=== PATIENT | female | born 1970 | race Caucasian/White ===

== ENCOUNTER → 2018-05-07 09:56 | Outpatient (REF) | payer MEDICAID, SELFPAY ==
[2018-05-07 19:38] LABS: Cholesterol 219 mg/dL (50-200); HDL Cholesterol 49 mg/dL (40-60); LDL CHOLESTEROL 150 mg/dL (<100); Triglyceride 118 mg/dL (30-150)
== END ==
LOC: NCHCN 09:56
PROVIDERS: PCP Internal Medicine; Visit Provider Physician Assistant Medical
DX: Z13.220 Encounter for screening for lipoid disorders (principal); Z00.00 Encounter for general adult medical examination without abnormal findings
CPT/HCPCS: 80061; 83721

== ENCOUNTER → 2018-05-07 13:24 | Outpatient (CLI) | payer MEDICAID, SELFPAY ==
--- NOTE | 2018-05-07 11:22 | DI.REPORT_ITS ---
SYMPTOMS/DIAGNOSIS: BRONCHITIS, J40, TOBACCO DEPENDENCE, F17.200 PA AND LATERAL CHEST: Comparison 06/02/17. The heart is normal in size. The lungs are clear. The mediastinal structures and pleura appear intact. CONCLUSION: Normal chest.
== END ==
PROVIDERS: PCP Internal Medicine; Visit Provider Physician Assistant Medical
DX: J40 Bronchitis, not specified as acute or chronic (principal); F17.200 Nicotine dependence, unspecified, uncomplicated
CPT/HCPCS: 80061; 83721; 71046

== ENCOUNTER 2018-05-24 03:04 | Outpatient (CLI) | payer MEDICAID, SELFPAY ==
--- NOTE | 2018-05-24 10:00 | DI.MAMMO_ITS ---
SYMPTOMS/DIAGNOSIS: SCREENING, Z12.89 MAMMOGRAM: Mammograms were interpreted according to the usual protocol including computer analysis with CAD system, tomosynthesis and C view imaging. Comparison with prior examinations. Breast density B. No suspicious masses or microcalcifications are seen. There are scattered nodular densities in both breasts. The skin and axilla are unremarkable. IMPRESSION: No evidence for malignancy. Yearly mammography is recommended. Category 2. MQSA ASSESSMENT OF FINDINGS: Negative with benign findings. Category 2. Patient will receive a letter notifying them of these results. BI-RADS category B. There are scattered areas of fibroglandular density.
== END 2018-05-24 03:24 ==
PROVIDERS: PCP Internal Medicine; Visit Provider Physician Assistant Medical
DX: Z12.31 Encounter for screening mammogram for malignant neoplasm of breast (principal)
CPT/HCPCS: 77063; 77067

== ENCOUNTER 2018-11-19 | Outpatient (CLI) | payer MEDICAID, SELFPAY ==
--- NOTE | 2018-11-19 08:30 | ETT_ITS ---
*[facility]* *[facility]* [address] [place] [address] Stress Electrocardiography Rocky protocol Date of study: 11/19/2018 *PATIENT PRESENTATION* Height: 170.2cm (67in) Blood Pressure: Weight: 109.1kg (240lb) BSA: 2.32m^2 Referring physician: [facility] Ordering physician: [facility] Impressions: Normal study after maximal exercise. Summary: 1. Stress ECG conclusions: The stress ECG is negative. Gonzales treadmill score: 8. This score predicts a low risk of cardiac events. 2. Stress: The target heart rate was achieved. Indication: R07.89. History: REASON FOR TESTING: OVER THE LAST 3 YEARS PATIENT HAS BEEN EXPERIENCING INTERMITENT MID BACK PAIN THAT RADIATES TO HER RIGHT JAW AND NECK. THIS DISCOMFORT HAS INCREASED IN FREQUENCY TO EVERY COUPLE OF WEEKS OVER THE LAST 6 MONTHS. PATIENT DESCRIBED HER WORST EPISODE A TIGHT PRESSURE (RATED 10/10) IN MID BACK THAT RADIATES TO HER RIGHT NECK AND JAW. WHEN THIS HAPPENS HER RIGHT JAW FEELS LIKE LOCKJAW. MID BACK DISCOMFORT AND JAW PAIN HAS NO CORRELATION TO ACTIVITY OR REST. SHE DENIES PAIN/PRESSURE/TIGHTNESS UPON ARRIVAL TO TESTING TODAY. SIGNIFICANT PAST MEDICAL HISTORY: PULMONARY EMBOLISM, DVT. SMOKING STATUS: SMOKED FOR 12 YEARS, 2 PPD. EXERCISE ROUTINE: DAILY ADL'S. OCCASIONALLY WILL WALK FOR 30 MINUTES EITHER OUTSIDE OR ON TREADMILL. Risk factors: Family history of coronary artery disease. Current tobacco use. Obesity. Dyslipidemia. Cholesterol: 219mg/dl. HDL: 49mg/dl. LDL: 150mg/dl. Triglycerides: 118mg/dl. ALLERGIES: NO KNOWN ALLERGIES. MEDICATIONS: IBUPROFEN 200 MG PRN, TYLENOL 650 MG PRN. Protocol: Rocky protocol. Baseline ECG: SINUS RHYTHM. 66 BPM. Stress protocol: + +---+ + !Stage !HR !BP (mmHg) ! + +---+ + !Baseline supine !66 !120/80 (93) ! + +---+ + !Baseline standing !81 !100/80 (87) ! + +---+ + !Stage I; 1.7mph, 10degrees; 3 min !115!120/80 (93) ! + +---+ + !Stage II; 2.5mph, 12degrees; 3 min !126!140/80 (100)! + +---+ + !Stage III; 3.4mph, 14degrees; 3 min!---!150/80 (103)! + +---+ + !Peak stress !160! ! + +---+ + !Recovery; 1 min !140!140/72 (95) ! + +---+ + !Recovery; 3 min !89 !138/78 (98) ! + +---+ + !Recovery; 6 min !87 !120/80 (93) ! + +---+ + * Stress results: STRESS TEST ENDED IN 7 MINUTES & 46 SECONSDS DUE TO SHORTNESS OF BREATH AND FATIGUE. NORMAL HEART RATE AND BLOOD PRESSURE RESPONSE TO EXERCISE. MAX HEART RATE = 160 % OF TARGET HEART RATE ACHIEVED = 93 APPROXIMATE MET'S ACHIEVED = 9.78 NO ECTOPY. NO ANGINA. NO SIGNIFICANT ST SEGMENT CHANGES. AVERAGE FUNCTIONAL CAPACITY FOR EXERCISE. Maximal heart rate during stress was 160bpm (94% of maximal predicted heart rate). The maximal predicted heart rate was 171bpm. The target heart rate was achieved. The rate-pressure product for the peak heart rate and blood pressure was 55372ko Hg/min. Stress ECG: The stress ECG is negative. Gonzales treadmill score: 8. This score predicts a low risk of cardiac events. Study data: Chiki Massey MD supervised and was readily available during the procedure. This study was interpreted by [facility]. Study status: Routine. Consent: The risks, benefits, and alternatives to the procedure were explained to the patient and informed consent was obtained. Procedure: Initial setup. A baseline ECG was recorded. Surface ECG leads and manual cuff blood pressure measurements were monitored. Heart sounds: Normal. Lung sounds: Normal. Treadmill exercise testing was performed using the Rocky protocol. Study completion: The patient tolerated the procedure well and was discharged from the lab. Discharge: The patient left the laboratory in stable condition. Birthdate: Patient birthdate: 1970. Sex: Gender: female. Study date: Study date: 11/19/2018. Study time: 00:01 AM. Electronically signed by Chiki Massey MD 11/19/2018 10:03
== END 2018-11-19 00:20 ==
PROVIDERS: PCP Internal Medicine; Visit Provider Surgery
DX: R07.89 Other chest pain (principal); E78.5 Hyperlipidemia, unspecified; Z86.718 Personal history of other venous thrombosis and embolism; Z86.711 Personal history of pulmonary embolism; Z87.891 Personal history of nicotine dependence; Z82.49 Family history of ischemic heart disease and other diseases of the circulatory system
CPT/HCPCS: 93017

== ENCOUNTER 2019-04-30 10:01 | Outpatient (REF) | payer MEDICAID, SELFPAY ==
[2019-04-30 18:47] LABS: HCT 44.8 % (36.0-46.0); HGB 14.7 g/dL (12.0-15.5); Mean Corp. HGB Concentration 32.8 g/dL (32.0-36.0); Mean Corpuscular Hemoglobin 30.9 pg (27.0-33.0); Mean Corpuscular Volume 94.3 fL (80-95); Mean Platelet Volume 10.4 fL (8.0-11.0); Platelet Count 304 x1000/uL (130-400); RBC 4.75 m/cumm (4.00-5.20); RBC Distribution Width 13.4 % (11.7-14.6); White Blood Cell Count 5.08 k/cumm (4.4-10.8)
[2019-04-30 18:48] LABS: Bilirubin Negative (Negative); Blood Small (Negative); Clarity Clear (Clear); Glucose Negative (Negative); Ketones Negative (Negative); Leukocyte Esterase Negative (Negative); Nitrite Negative (Negative); Urobilinogen 0.2 EU/dL (Up TO 0.2)
[2019-04-30 18:56] LABS: Anion Gap 9.5 mmol/L (3-11); BUN 12 mg/dL (7-18); CO2 27.5 mmol/L (21.0-32.0); CREATININE 0.86 mg/dL (0.55-1.02); Calcium 8.8 mg/dL (8.5-10.1); Chloride 105 mmol/L (98-107); Glucose 105 mg/dL (70-100); Potassium 4.7 mmol/L (3.5-5.1); Sodium 142 mmol/L (136-145)
[2019-04-30 18:58] LABS: WBC Negative HPF (0-5)
[2019-04-30 18:59] LABS: Bacteria Negative HPF (Negative); C & S Indicated? No; Casts Negative LPF (Negative); Crystals Negative HPF (Negative); Epithelial Cells Moderate HPF (Negative); Mucus Negative (Negative)
== END 2019-04-30 10:21 ==
LOC: NCHCN 10:01
PROVIDERS: PCP Internal Medicine; Visit Provider Nurse Practitioner Family
DX: R10.32 Left lower quadrant pain (principal)
CPT/HCPCS: 80048; 85027; 81003; 81015

== ENCOUNTER 2019-06-03 00:28 | Outpatient (CLI) | payer MEDICAID, SELFPAY ==
--- NOTE | 2019-06-03 08:30 | DI.CT_ITS ---
EXAM: CT ABDOMEN PELVIS W CLINICAL HISTORY: LLQ ABD PAIN,R10.32. TECHNIQUE: CT examination of the abdomen and pelvis was carried out according to the usual protocol with an intravenous injection of 100 cc Omnipaque and oral ingestion of dilute Omnipaque. COMPARISON: ABD PELVIS WITH CONTRAST from 09/01/2017 FINDINGS: The examination is compared with a prior study from 09/01/2017. The liver and gallbladder are intact . There are no stones or evidence of ductal dilatation. The pancreas, spleen and kidneys are intact s ave for a small lower pole right renal calculus. Adrenals are unremarkable. There is no evidence of bowel obstruction. The patient is status post previous sigmoid resection and small bowel resections. There is no evidence of mucosal thickening. There is nothing to suggest an acute appendix. Bladder appears intact. The reproductive organs as visualized appear intact. There is no evidence of free a ir or free fluid in the intraperitoneal space. No acute bony abnormality is seen The soft tissues are unremarkable. There is no aortic aneurysm. There is no lymphadenopathy. When compared with the pre vious study, again noted are multiple cystic structures in the pelvis which appear little changed in size when compared with the previous examination. Small ring-like regions of enhancement involving b oth right and left cyst. On today's examination, the dominant right pelvic cyst measures 9.4 by 3.6 c m. The dominant left cyst measures up to 13 by 6 cm. There is no evidence of an aneurysm. IMPRESSION: When compared with the prior examination, again noted are multiple cystic pelvic masses. These are n ot significantly increased in size when compared with the prior study. If there is any further clinic al question regarding the status of this patient, then an MRI is suggested for further evaluation.
[2019-06-03] MEDS: Omnipaque 350 MG/ML 100 ML BTL IJ (09:01)
[2019-06-03] MEDS: Breeza Beverage 473 ML BTL PO ×2 (09:01→09:02)
[2019-06-03] MEDS: Omnipaque 350 MG/ML 50 ML BTL PO (09:01)
== END 2019-06-03 00:48 ==
PROVIDERS: PCP Internal Medicine; Visit Provider Nurse Practitioner Family
DX: R10.32 Left lower quadrant pain (principal); R93.5 Abnormal findings on diagnostic imaging of other abdominal regions, including retroperitoneum; R19.07 Generalized intra-abdominal and pelvic swelling, mass and lump
CPT/HCPCS: 74177; J3490; Q9967

== ENCOUNTER 2019-07-02 01:21 | Outpatient (CLI) | payer MEDICAID, SELFPAY ==
[2019-07-02] MEDS: Normal Saline Flush 10 ML SYR IVP (15:03)
[2019-07-02] MEDS: Gadoterate meglumine 20 ML VIAL IVP (15:04)
--- NOTE | 2019-07-02 15:23 | DI.MRI_ITS ---
EXAM: MR PELVIS WO/W CLINICAL HISTORY: PELVIC CYSTS ON CT SCAN, PAIN, EXTENSIVE ABD SURGICAL HISTORY. TECHNIQUE: Multiplanar multisequence MRI was performed. COMPARISON: CT OF ABDOMEN AND PELVIS 06/03/19 FINDINGS: There is no free fluid in the intraperitoneal space. A large adnexal cystic lesion measures up to 11 .3 x 5.9 x 9.9 cm on the right and 8.5 x 5.3 x 8.5 on the left. There is no definite enhancement. T here are other bilateral ovarian follicle cysts, measuring up to 1.6 cm. There is a 1.4 cm follicular cyst in the right ovary with increased T2 weighted signal consistent with a follicular cyst containi ng hemorrhagic or proteinaceous material. 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 The soft tissues are unremarkable. IMPRESSION: Large adnexal cystic lesions are demonstrated, measuring up to 11.3 x 5.9 x 9.9 cm on the right and 8 .5 x 5.3 x 8.5 cm on the left. There is no definite enhancement. Similar to a prior CT, the differe ntial diagnosis includes paraovarian cyst, cystadenoma. A cystadenocarcinoma could not be entirely ex cluded.
--- NOTE | 2019-07-03 07:09 | DI.VRAD_ITS ---
PROCEDURE INFORMATION: Exam: MR Pelvis Without and With Contrast Exam date and time: 07/02/2019 3:23 PM Clinical history: 49 years old, female; Other: Pelvic cysts on CT scan, pain, extensive abd surgical history; Prior surgery TECHNIQUE: Imaging protocol: Magnetic resonance images of the pelvis without and with intravenous contrast. Contrast material: DOTAREM; Contrast volume: 20 ml; Contrast route: IV; COMPARISON: CT ABDOMEN PELVIS W 06/03/2019 8:43 AM FINDINGS: Intraperitoneal space: No free fluid. Reproductive: Large adnexal cystic lesions measuring up to 11.3 x 5.9 x 9.9 cm on the right and 8.5 x 5.3 x 8.5 cm on the left. No definite enhancement. 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 IMPRESSION: Large adnexal cystic lesions measuring up to 11.3 x 5.9 x 9.9 cm on the right and 8.5 x 5.3 x 8.5 cm on the left. No definite enhancement. Similar to prior CT. Differential diagnosis includes a paraovarian cyst cystadenoma. Cystadenocarcinoma less likely but not excluded Dictated and Authenticated by: Arthur Silva MD. Ordering:BLU Ross MD
== END 2019-07-02 01:41 ==
PROVIDERS: PCP Internal Medicine; Visit Provider Nurse Practitioner Family
DX: N83.8 Other noninflammatory disorders of ovary, fallopian tube and broad ligament (principal); N83.01 Follicular cyst of right ovary; N94.89 Other specified conditions associated with female genital organs and menstrual cycle
CPT/HCPCS: 72197

== ENCOUNTER 2020-02-01 15:57 | Emergency (ER) | payer MEDICAID, SELFPAY ==
[2020-02-01 16:06] VITALS: BP 132/76; PULSE 89; RESP 18; TEMP 36.6; O2SAT 99
--- NOTE | 2020-02-01 16:15 | DI.CT_ITS ---
EXAM: CT ABDOMEN PELVIS W CLINICAL HISTORY: abdominal pain. TECHNIQUE: Imaging Protocol: Axial computed tomography images with coronal and sagittal reformatted images were created and reviewed CONTRAST MATERIAL: Intravenous: Omnipaque 350 Contrast volume:100 cc Oral: yes COMPARISON: CT ABD PELVIS WITH CONTRAST from 04/19/2011 US from 07/08/2015 CT ABD PELVIS WITH CONTRAST from 07/21/2015 CT ABD PELVIS WITH CONTRAST from 09/01/[address] ABDOMEN PELVIS W from 06/03/2019 MR MR PELVIS WO/W from 07/02/2019 FINDINGS: ABDOMEN: Lung Bases: Normal where visualized. Liver: Normal density. No measurable mass. Gallbladder and biliary tract: No radiodense calculus or dilation. Pancreas: Normal density, no abnormal calcifications or inflammatory process. Spleen: Normal. Kidneys: Normal size, contour and axis. No radiodense stones or obstructive uropathy. No masses seen. Adrenal glands: No masses seen. Abdominal Aorta: Abdominal portion non-dilated. PELVIS: Bladder: Symmetric distention, no gross wall thickening. Bowel: There is a question of mild wall bowel wall thickening in the anterior midline of the abdomen. Fluid is seen in the colon more so on the right. There is no evidence of obstruction. Patient is status post appendectomy.. Peritoneal cavity: No ascites, collection or mesenteric inflammatory response. Bones: Within normal limits. Nerve root sheath cysts are again noted in the upper sacrum. Reproductive organs: Status post hysterectomy. There is a an area of soft tissue which could represe nt residual cervix. There are bilateral septated ovarian cysts, the right with considerable decrease when compared to the previous exam. The left ovarian cyst has increased in size, measuring 11 cm. There is impression on the left side of the bladder. Lymph nodes: Unremarkable. There has been previous abdominal wall surgery. There is a stable dehiscence of the midline of the a nterior abdominal wall. Impression: Question of mild wall thickening of a loop of small bowel in the mid abdomen anteriorly. No evidence of obstruction. Please previous ventral abdominal wall surgery. Bilateral adnexal cystic masses. The left has increased in size while the right has decreased in siz e since the previous examination. RADIATION DOSE DELIVERED: 1,367.78mGy.cm Total DLP DATA REPOSITORY: All CT scans at this facility are submitted to the National Radiology Data Registry (NRDR) Dose Index Registry (DIR) with the [employer] (ACR). RADIATION OPTIMIZATION: All CT scans at this facility use at least one of these dose optimization te chniques: automated exposure control; mA and/or kV adjustment per patient size (includes targeted exa ms where dose is matched to clinical indication); or iterative reconstruction.
--- NOTE | 2020-02-01 16:21 | W.ED.GENAD ---
Discharge Plan Discharge Details Chief Complaint: Abd Prob Primary Care Provider: Linus Barton ED Provider: Kaci Roth Home Meds and New Rx's Prescriptions: No Action acetaminophen [Tylenol] 325 MG tablet 650 mg PO Q6H PRN PRNRF: 0 ibuprofen [Advil] 200 MG tablet 200 mg PO Q6H PRN PRNRF: 0 Discharge Data Discharge Date/Time-TO BE ENTERED AT DEPARTURE: 02/01/20 21:20 Medical Decision Making <DELIO Booth - Last Filed: 02/01/20 22:27> 49-year-old patient presents with onset of abdominal pain beginning at 8:00 this morning which began at a 2 out of 10 has not escalated to a 6 out of 10 over the course the day. Patient does report some cramping components which are sharper than 6 out of 10. Patient does report a longstanding surgical history. Please see HPI for details. She presents with normal vital signs, afebrile. On exam has lower abdominal pain and left lower quadrant abdominal pain with palpation otherwise no peritoneal signs. Will provide pain medication, nausea medication, IV fluid after obtain IV access. We will plan to check labs as well as CT of patient's abdomen. Patient is agreeable to this plan of care. No Covid concerns. Reevaluation patient reveals she is feeling significantly more comfortable after use of pain medication. Patient's labs reveal no leukocytosis. No significant electrolyte abnormalities. Renal function normal, liver function normal. Lipase normal. Urinalysis unremarkable for identified infection. Patient did receive 500 cc of NS IV. Patient's CT reveals possible enteritis involving the small bowel loops in the ventral abdomen. Nonobstructing calculus of the right kidney. No hydronephrosis. No evidence of bowel obstruction. Patient has diverticulosis without evidence of diverticulitis. Patient does have bilateral adnexal cystic masses. Mass on the left measures 11.3 x 7.6 cm with interval enlargement in the right-sided mass measures 6.7 x 2.7 cm with interval decrease in size compared to previous imaging on 06/03/2019. Patient is status post appendectomy. Reexamination of the patient reveals improved pain the exception of persistent pain in the right lower abdomen. Discussed adnexal masses with the patient. Patient unaware of adnexal masses. Given her pain in the right lower abdomen and finding of cystic mass concern for possible ovarian torsion. Although given patient's presentation today described as periumbilical pain upper abdominal pain which spread to the abdomen I find this to be unlikely however patient clearly is tender in the lower abdomen at this time. I did page to [facility] to discuss patient's case. Spoke with Dr. Markham regarding concerns regarding ovarian mass. We discussed the possibility of admission for overnight observation versus transfer to [facility] for surgical consideration. Plan to discuss options with the patient. Spoke with the patient regarding these options. Patient feels strongly that this is unlikely to be related to her ovaries however does understand that her persistent pain is in the area of her ovary. She felt this was likely bowel related. Patient did speak with Dr. Markham who did present to the emergency room for evaluation. Ultimately patient's preference is to follow-up with [facility] a surgeon whom she is familiar with. Patient is also connected to the [facility] services and would prefer follow-up at that time. Patient ultimately signed out AGAINST MEDICAL ADVICE and preference to follow-up with her own specialists. <Palomo Duncan MD - Last Filed: 02/01/20 17:37> Patient seen, examined and discussed with Ms. Mathias. I agree with her assessment and plans for work-up including laboratory and CT images. Please see her note regarding patient's diagnostic studies. HPI <DELIO Booth - Last Filed: 02/01/20 22:27> General Date/Time Provider Initiated Documentation: 02/01/20 16:02. HPI Narrative: This is a 49-year-old patient presenting to the emergency room today for complaints of abdominal pain. Patient reports she awoke feeling well. Patient reports she had a normal bowel movement this morning. Reports at approximately 8:00 AM while she was standing doing dishes she noted onset of 2 out of 10 mid abdominal pain. Patient reports throughout the course the day pain has increased in severity. Patient now reporting a constant 6 out of 10 pain with occasional cramping pain which is sharper. Patient reports cramping pain coming in waves. Patient denies associated headache or dizziness. Does report mild chills this morning no measured fever or sweats. Denies diaphoresis. Patient denies any chest pain, difficulty breathing or shortness of breath or wheezing. No new cough. Denies any ill exposure. Patient does report mild lower back pain associated with abdominal discomfort. Patient denies any diarrhea. No nausea no vomiting. Denies any dysuria, urgency, frequency or hematuria. Patient denies any numbness, tingling or weakness of extremities. Denies any sore throat, voice change. Denies any lower extremity swelling. Patient denies diarrhea. No blood with bowel movements. Patient has a medical history pertinent for hysterectomy, bowel resection due to diverticulitis. Colostomy with reversal. Appendectomy. Patient reports most recent surgery was a hernia repair in 2016. Patient's colostomy and bowel resection were in 2014. Patient denies taking any daily medications. Patient denies taking medications prior to arrival. Related Data Home Medications Medication Instructions Recorded Confirmed acetaminophen [Tylenol] 650 mg PO Q6H PRN PRN tab 10/27/17 02/01/20 ibuprofen [Advil] 200 mg PO Q6H PRN PRN tab 10/27/17 02/01/20 Previous Rx's Medication Instructions Recorded acetaminophen [Tylenol] 650 mg PO Q6H PRN PRN tab 10/27/17 ibuprofen [Advil] 200 mg PO Q6H PRN PRN tab 10/27/17 Allergies Allergy/AdvReac Type Severity Reaction Status Date / Time No Known Allergies Allergy Unverified 02/01/20 16:08 General Stated Complaint: Abd Prob NEIL: 3 Review of Systems <DELIO Booth - Last Filed: 02/01/20 22:27> All systems reviewed & are unremarkable except as noted in HPI and below PFS <DELIO Booth - Last Filed: 02/01/20 22:27> Surgical History (Updated 11/07/17 @ 13:36 by Lacey Landaverde) Hernia Repair, Incisional (10/24/17) Social History Smoking/Tobacco Use Status: Current every day Tobacco Type: cigarettes Alcohol Intake: current Alcohol Intake frequency: holidays/special occasions only Drug use: Never Substance use type: does not use Do you feel safe at home: Yes Do you feel safe in your relationship?: Yes Exam <DELIO Booth - Last Filed: 02/01/20 22:27> Narrative Exam Narrative: CONST: Uncomfortable appearing patient. Well hydrated. Alert and oriented. EYES: General normal appearance. Alignment normal. Eyelids normal. Conjunctiva normal. Sclera normal. PERRL. NECK: Normal visual inspection. FROM. No lymphadenopathy. Trachea midline. No Midline tenderness. CHEST: Normal insepection of the chest. RESP: Normal respiratory effort. Speaking full sentences. No cough. No wheezing. No retractions. Clear to auscaltation. Breath sound equal and present bilaterally. CARDIO: No JVD. Normal PMI. Regular Rate. Regular Rhythm. Normal peripheral pulses. GI: Normal inspection of abdomen. No distension. Soft. Abdominal tenderness noted in the left lower quadrant, periumbilical area, suprapubic area. Bowel sounds present in all 4 quadrants. No rebound. No gaurding. MUSCULOSKELETAL: Normal Gait. FROM of all extremities. Distal neurovascularly intact. Sensation intact distally. Back: No CVA tenderness noted bilaterally SKIN: Normal. Dry. No rashes. NEURO: Alert and awake. Speech clear. PSYCH: Normal affect. Cooperative. Course <DELIO Booth - Last Filed: 02/01/20 22:27> Vital Signs Vital signs: Vital Signs Temperature 36.6 C 02/01/20 16:06 Pulse 89 02/01/20 16:06 Respiratory Rate 18 02/01/20 16:06 Blood Pressure 132/76 02/01/20 16:06 Pulse Oximetry 99 02/01/20 16:06 Temperature 36.6 C 02/01/20 16:06 Temperature Source Skin 02/01/20 16:06 Pulse 89 02/01/20 16:06 Respiratory Rate 18 02/01/20 16:06 Blood Pressure 132/76 02/01/20 16:06 Blood Pressure Position Sitting 02/01/20 16:06 Pulse Oximetry 99 02/01/20 16:06 Oxygen Delivery Method Room Air 02/01/20 16:06 Oxygen Flow Rate 0 02/01/20 16:06 Pain Level 6 02/01/20 16:06
[2020-02-01] MEDS: Ondansetron 4 MG/2 ML VIAL IVP (16:44)
[2020-02-01] MEDS: Normal Saline Flush 10 ML SYR IVP (16:45)
[2020-02-01 17:15] LABS: Abs Immature Grans 0.02 k/cumm (0.0-0.09); Absolute Basophil Count 0.02 k/cumm (0.0-0.2); Absolute Eosinophil Count 0.08 k/cumm (0.0-0.7); Absolute Lymphocyte Count 1.36 k/cumm (1.2-3.4); Absolute Monocyte Count 0.74 k/cumm (0.11-0.7); Absolute Neutrophil Count 6.54 k/cumm (1.2-6.7); Basophils % 0.2; Eosinophils % 0.9; HCT 42.9 % (36.0-46.0); HGB 14.6 g/dL (12.0-15.5); Immature Grans % 0.2 %; Lymphocytes % 15.5; Mean Corpuscular Hemoglobin 31.5 pg (27.0-33.0); Mean Corpuscular Volume 92.7 fL (80-95); Mean Platelet Volume 10.1 fL (8.0-11.0); Monocytes % 8.4; Neutrophils % 74.8; Platelet Count 357 x1000/uL (130-400); RBC 4.63 m/cumm (4.00-5.20); RBC Distribution Width 13.5 % (11.7-14.6); White Blood Cell Count 8.76 k/cumm (4.4-10.8)
[2020-02-01] MEDS: Normal Saline 500 ML IV (17:40)
[2020-02-01 17:46] LABS: Bilirubin Negative (Negative); Blood Trace-intact (Negative); Clarity Clear (Clear); Glucose Negative (Negative); Ketones Negative (Negative); Leukocyte Esterase Negative (Negative); Nitrite Negative (Negative); Urobilinogen 0.2 EU/dL (Up TO 0.2); pH 8.5 (5-8)
[2020-02-01 17:47] LABS: C & S Indicated? C&S Done As Ordered
[2020-02-01 17:54] LABS: RBC 20-50 HPF (0-2); WBC Negative HPF (0-5)
[2020-02-01 17:55] LABS: Casts Negative LPF (Negative); Crystals Few Amorphous HPF (Negative); Epithelial Cells Negative HPF (Negative); Mucus Moderate (Negative)
[2020-02-01 18:01] LABS: ALT 29 U/L (14-59); AST 23 U/L (15-37); Albumin 4.1 g/dL (3.4-5.0); Alkaline Phosphatase 73 U/L (46-116); Anion Gap 6.3 mmol/L (3-11); BUN 15 mg/dL (7-18); Bilirubin, Total 0.4 mg/dL (0.2-1.0); CO2 29.7 mmol/L (21.0-32.0); CREATININE 0.99 mg/dL (0.55-1.02); Calcium 9.5 mg/dL (8.5-10.1); Chloride 103 mmol/L (98-107); Estimated GFR 59.37 (mL/min/1.73m2); Glucose 109 mg/dL (74-106); Lipase 111 U/L (73-393); Potassium 3.7 mmol/L (3.5-5.1); Sodium 139 mmol/L (136-145); Total Protein 7.8 g/dL (6.4-8.2)
[2020-02-01 18:02] VITALS: BP 123/76; PULSE 70; RESP 20; TEMP 37.1; O2SAT 95
[2020-02-01 18:05] LABS: Bacteria Negative HPF (Negative)
[2020-02-01 19:22] VITALS: BP 126/81; PULSE 74; RESP 18; TEMP 37.2; O2SAT 95
[2020-02-01] MEDS: Normal Saline 1,000 ML 125 ML IV (19:31)
--- NOTE | 2020-02-01 19:44 | DI.VRAD_ITS ---
PROCEDURE INFORMATION: Exam: CT Abdomen And Pelvis With Contrast Exam date and time: 02/01/2020 4:20 PM Age: 49 years old Clinical indication: Abdominal pain TECHNIQUE: Imaging protocol: Computed tomography of the abdomen and pelvis with intravenous contrast. COMPARISON: CT ABDOMEN PELVIS W 06/03/2019 8:43 AM FINDINGS: Liver: Normal. No mass. Gallbladder and bile ducts: Normal. No calcified stones. No ductal dilation. Pancreas: Normal. No ductal dilation. Spleen: Normal. No splenomegaly. Adrenals: Normal. No mass. Kidneys and ureters: Nonobstructing calculus in the right kidney. No hydronephrosis. Stomach and bowel: Status post ventral hernia repair and bowel resection. There is mucosal thickening of a small bowel loop in the ventral abdomen. No evidence of bowel obstruction. Colonic diverticulosis without diverticulitis. Appendix: Appendectomy. Intraperitoneal space: Trace fluid in the ventral abdomen which may be extraperitoneal. No free air. Vasculature: Unremarkable. No abdominal aortic aneurysm. Lymph nodes: Unremarkable. No enlarged lymph nodes. Bladder: Unremarkable as visualized. Reproductive: Bilateral adnexal cystic masses. The mass on the left measures 11.3 x 7.6 cm with interval enlargement and the right-sided mass measures approximately 6.7 x 2.7 cm with interval decrease. 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 No acute fracture. Soft tissues: Unremarkable. IMPRESSION: 1. Possible enteritis involving a small bowel loop in the ventral abdomen. 2. Bilateral cystic adnexal masses as above. Dictated and Authenticated by: Ventura Mora MD. Ordering:JOAN Clemons MD
[2020-02-01 21:09] VITALS: BP 149/100; PULSE 97; RESP 16; TEMP 36.7; O2SAT 96
--- NOTE | 2020-02-01 21:12 | NUR.NOTE ---
Pt out to desk, states she wants to leave. Pt had pulled own IV from RFA, dsd in place. Informed pt she was waiting for MD Markham for eval. Pt stated she did not want to wait. MD Markham arrived and spoke with pt, pt states again she wants to leave. Aware leaving AMA. Encouraged to return for worsening symptoims. Ambulated to exit with steady
== END 2020-02-01 21:20 ==
LOC: ER 17:52
PROVIDERS: Emergency Provider Physician Assistant; PCP Internal Medicine
DX: R10.32 Left lower quadrant pain; R93.5 Abnormal findings on diagnostic imaging of other abdominal regions, including retroperitoneum; Z53.29 Procedure and treatment not carried out because of patient's decision for other reasons
CPT/HCPCS: 36415; 80053; 83690; 96361; 96374; 96375; 99285; 74177; 81003; 81015; 85025; 87086; J2405

== ENCOUNTER 2020-11-02 17:00 | Emergency (ER) | payer MEDICAID, SELFPAY ==
--- NOTE | 2020-11-02 17:00 | RT.EKG_ITS ---
APPROVED REPORT Exam: Resting ECG Patient Location: E HR:89 bpm ECG Measurements Heart Rate 89 AXIS HI 157 P 32 QRSd 90 QRS -12 QT 362 T 65 QTc 442 Conclusion Sinus rhythm...normal P axis, V-rate 60- 99 I have reviewed and interpreted ECG and agree with software generated interpretation. Physician: no stemi
[2020-11-02 17:04] VITALS: BP 139/103; PULSE 104; RESP 18; TEMP 36.5; O2SAT 99
--- NOTE | 2020-11-02 17:15 | DI.CT_ITS ---
EXAM: CT ABDOMEN PELVIS WO CLINICAL HISTORY: generalized lower abdominal pain. TECHNIQUE: Imaging Protocol: Axial computed tomography images with coronal and sagittal reformatted images were created and reviewed. Oral: no COMPARISON: CT CT ABDOMEN PELVIS W from 02/01/2020 FINDINGS: ABDOMEN: Lung Bases: Normal where visualized. Heart size normal. No visible coronary artery or aortic calci fications. Liver: Normal density. No measurable mass. Gallbladder and biliary tract: No biliary dilation. Faintly visible noncalcified stones. No wall thickening. Pancreas: Normal density, no abnormal calcifications or inflammatory process. Spleen: Normal. Kidneys: Normal size, contour and axis. A tiny nonobstructing stone at the upper pole right kidney. No obstructive uropathy. No masses seen. Adrenal glands: No masses seen. Lymph nodes: Within normal limits. Abdominal Aorta: Abdominal portion non-dilated. PELVIS: Bladder: Nearly empty and not well evaluated. Bowel: 2 areas of colonic anastomosis is again noted. The anastomosis toward the right side of the a bdomen shows mild wall thickening. Status post appendectomy. Prior abdominal wall hernia repair. N o evidence of a recurrence hernia. There is some stranding in the subcutaneous fat. There is no thanh inable collection. Peritoneal cavity: No ascites, collection or mesenteric inflammatory response. Reproductive organs: Status post hysterectomy. Bilateral cystic adnexal lesions, decreased in size w hen compared with the previous exam. Bones: Within normal limits. IMPRESSION: Mild thickening around the right-sided colonic and anastomosis. No evidence of perforation or absces s. Prior abdominal wall hernia repair with some stranding in the subcutaneous fat. Interval decrease in size of bilateral adnexal cystic lesions. RADIATION DOSE DELIVERED: 1,692.44mGy.cm Total DLP DATA REPOSITORY: All CT scans at this facility are submitted to the National Radiology Data Registry (NRDR) Dose Index Registry (DIR) with the [employer] ([employer]). RADIATION OPTIMIZATION: All CT scans at this facility use at least one of these dose optimization te chniques: automated exposure control; mA and/or kV adjustment per patient size (includes targeted exa ms where dose is matched to clinical indication); or iterative reconstruction.
--- NOTE | 2020-11-02 17:20 | ED.GENADUL_ITS ---
Discharge Plan Disposition Patient Disposition: HOME Condition: Good Discharge Details Clinical Impression: Enteritis Primary Care Provider: Linus Barton ED Provider: Jaun Bojorquez Home Meds and New Rx's Prescriptions: New ondansetron HCl [Zofran] 4 mg tablet 4 mg PO Q8H Qty: 12 RF: 0 Continued acetaminophen [Tylenol] 325 MG tablet 650 mg PO Q6H PRN PRNRF: 0 ibuprofen [Advil] 200 MG tablet 200 mg PO Q6H PRN PRNRF: 0 Discharge Instructions Instructions: Enteritis (ED) Additional Instructions: At this time you have evidence of mild enteric colitis, which is irritation of your intestines. There does not appear to be a significant infectious etiology at this time. As we discussed together please stick with a liquid diet for the next 2 to 3 days. Do not eat anything greasy or of subsidence otherwise. Take the Zofran as needed for nausea. We will place a referral with Dr. Heart, please follow-up closely with him. If you notice any worsening of your symptoms, or any new symptoms such as vomiting, diarrhea, fever, chills, shortness of breath, chest pain, numbness, weakness, or fainting , please return immediately to the emergency department for reevaluation. Please follow up with your primary care provider as soon as possible for reassessment and ree valuation. As always, it was a pleasure participating in your medical care today. Referrals: Favio Heart DO [OSTEOPATHIC DOCTOR] - Charles Heart MD [ [facility] STAFF PHYSICIAN] - Linus Barton [Primary Care Provider] - Medical Decision Making 50-year-old female with a past medical history of partial colectomy, diverticulitis with subsequent colostomy which is since been repaired and reversed, abdominal hernia, appendectomy, hysterectomy, presents today for generalized abdominal pain in the mid abdomen for the last 3 days. She denies any vomiting or diarrhea but does note a notably diminished appetite. She denies any fever or chills. She states that this abdominal pain is inconsistent with anything she has had before. She describes it as sharp and achy. Worse with palpation of the abdomen. She denies any urinary discomfort. No other complaints at this time. No other modifying factors. Exam demonstrates mid to lower abdominal tenderness bilaterally. Notably reproducible. Differential is broad especially with her multiple surgeries in the past, but does include gallbladder pathology, pancreatitis, recurrent diverticulitis. We will get a CT scan, manage her pain, gently rehydrate, monitor closely and reassess. Symptoms appearing consistent with cardiac etiology. EKG is sinus rhythm, otherwise unremarkable. 7 PM Laboratory work-up is returned, no white count, bandemia or left shift, lactate is unremarkable, troponin negative, EKG benign, lipase normal. Urinalysis shows small amount of blood but no other significant abnormalities, no evidence of infection. CT scan results have returned, demonstrate some mild thickening of multiple nondilated loops of small bowel with mild evidence of potential inflammatory enterocolitis. Symptoms are inconsistent with a significant infectious etiology with no white count bandemia or left shift or fever. Pain is improved. Patient now tells me that her symptoms actually come on and off every month. Concern for potential Crohn's or IBS. I do feel that the patient would benefit from outpatient further surgical evaluation. With no signs of an acute surgical abdomen at this time. I did contact the surgeon on-call Dr. Seals, we discussed the case together, he reviewed the images the case as well. At this time it is felt that the patient is appropriate for discharge with close follow-up. Recommend liquid diet for the next 2 to 3 days, and return for worsening symptoms. Will give outpatient referral with Dr. Heart. Discussed red flags which return. I have extensively reviewed the treatment plan and discharge instructions with the patient and their family. I have addressed all patient concerns at this time. The patient and family was made aware of what symptoms to monitor for that would warrant a return to the emergency department. Discussed the plan with the patient and family, they demonstrate verbal understanding and agreement with our assessment and plan at this time. The documentation in this chart was dictated using [employer] dictation software. Please excuse any dictation errors. IMPRESSION: 1. Postoperative changes of a partial colectomy with wall thickening seen within the small bowel proximal to the anastomosis and within the colon at the level of the anastomosis. Fluid is seen within multiple nondilated loops of small bowel and right colon without a discrete transition point. Overall, this is most consistent with an infectious or inflammatory enterocolitis, with probable chronic partial adhesion of several small bowel loops to the undersurface of the ventral abdominal wall. No bowel obstruction, perforation or pneumatosis. No abscess. 2. Cholelithiasis without evidence for acute cholecystitis. 3. Bilateral mildly complex, septated adnexal masses, decreased in size from prior studies. While these could represent complex hematomas or lymphoceles, an underlying malignancy cannot be excluded. 4. Circumferential wall thickening within the urinary bladder, similar when compared to the prior study. This may represent cystitis. 5. Nonobstructing right-sided renal stone. Thank you for allowing us to participate in the care of your patient. Dictated and Authenticated by: Roselyn Wakefield MD 11/02/2020 6:36 PM Eastern Time ([place] & [place]) HPI General Date/Time Provider Initiated Documentation: 11/02/20 17:09 . HPI Narrative: 50-year-old female with a past medical history of previous diverticulitis with subsequent colostomy which is since been repaired and reversed, abdominal hernia, appendectomy, hysterectomy, presents today for generalized abdominal pain in the mid abdomen for the last 3 days. She denies any vomiting or diarrhea but does note a notably diminished appetite. She denies any fever or chills. She states that this abdominal pain is inconsistent with anything she has had before. She describes it as sharp and achy. Worse with palpation of the abdomen. She denies any urinary discomfort. No other complaints at this time. No other modifying factors. Related Data Home Medications Medication Instructions Recorded Confirmed acetaminophen [Tylenol] 650 mg PO Q6H PRN PRN tab 10/27/17 11/02/20 ibuprofen [Advil] 200 mg PO Q6H PRN PRN tab 10/27/17 11/02/20 ondansetron HCl [Zofran] 4 mg PO Q8H #12 tab 11/02/20 Previous Rx's Medication Instructions Recorded acetaminophen [Tylenol] 650 mg PO Q6H PRN PRN tab 10/27/17 ibuprofen [Advil] 200 mg PO Q6H PRN PRN tab 10/27/17 ondansetron HCl [Zofran] 4 mg PO Q8H #12 tab 11/02/20 Allergies Allergy/AdvReac Type Severity Reaction Status Date / Time No Known Allergies Allergy Unverified 11/02/20 17:08 General Stated Complaint: Abd Prob NEIL: 3 Review of Systems All systems reviewed & are unremarkable except as noted in HPI and below PFSH Surgical History Hernia Repair, Incisional (10/24/17) Social History Smoking/Tobacco Use Status: Current every day Tobacco Type: cigarettes Smoking risk assessment performed?: Yes Alcohol Intake: current Alcohol Intake frequency: holidays/special occasions only Drug use: Never Substance use type: does not use Do you feel safe at home: Yes Do you feel safe in your relationship?: Yes Exam Narrative Exam Narrative: 1.Const: Well-nourished, Well-developed, appearing stated age 2.Eyes: PERRL, no conjunctival injection, and symmetrical lids. 3.ENT: Atraumatic external nose and ears. Moist MM. Neck: Symmetric, trachea midline, No thyromegaly. 4.CVS: +S1/S2, No murmurs or gallops. Peripheral pulses 2+ and equal in all extremities. Brisk capillary refill in all extremities. 5.RESP: Unlabored respiratory effort. Clear to auscultation bilaterally. No wheezes rales or rhonchi 6.GI: Soft, nondistended, tenderness just infraumbilically bilaterally. Worse with palpation. Appears to be present in both the left and right side. No upper abdominal tenderness. Mild voluntary guarding. 7.MSK: Normocephalic/Atraumatic, Extremities w/o deformity or ttp No cyanosis or clubbing, Normal movement of all extremities 8.Skin: Warm, Dry. No rashes or lesions. 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 Sensation grossly intact, no focal neurologic deficits. 10.Psych: (AAO) x3. Appropriate mood and affect Course Vital Signs Vital signs: Vital Signs Temperature 36.5 C 11/02/20 17:04 Pulse 104 H 11/02/20 17:04 Respiratory Rate 18 11/02/20 17:04 Blood Pressure 139/103 H 11/02/20 17:04 Pulse Oximetry 99 11/02/20 17:04 Temperature 36.5 C 11/02/20 17:04 Temperature Source Temporal Artery Scan 11/02/20 17:04 Pulse 104 H 11/02/20 17:04 Respiratory Rate 18 11/02/20 17:04 Respiratory Effort Non-Labored 11/02/20 17:08 Blood Pressure 139/103 H 11/02/20 17:04 Pulse Oximetry 99 11/02/20 17:04 Oxygen Delivery Method Room Air 11/02/20 17:04 Oxygen Flow Rate 0 11/02/20 17:04 Pain Level 3 11/02/20 17:04
[2020-11-02 17:36] LABS: Lactate 1.5 mmol/L (0.6-1.4)
[2020-11-02 17:38] LABS: Abs Immature Grans 0.03 10^3/uL (0.0-0.06); Absolute Basophil Count 0.05 10^3/uL (0.0-0.2); Absolute Eosinophil Count 0.09 10^3/uL (0.0-0.7); Absolute Lymphocyte Count 1.82 10^3/uL (1.2-3.4); Absolute Monocyte Count 0.63 10^3/uL (0.1-0.8); Absolute Neutrophil Count 4.96 10^3/uL (1.2-6.7); Basophils % 0.7; Eosinophils % 1.2; HCT 45.1 % (36.0-46.0); HGB 15.1 g/dL (11.2-15.7); Immature Grans % 0.4; MCH 31.1 pg (27.0-33.0); MCHC 33.5 % (32.0-36.0); MCV 92.8 fL (80-95); MPV 9.4 fL (8.0-11.0); Monocytes % 8.3; Neutrophils % 65.4; Nucleated RBC 0 %; Platelet Count 367 10^3/uL (130-400); RBC 4.86 10^6/uL (3.93-5.22); RDW 12.1 % (11.7-14.6); RDW-SD 41.7 fL; WBC 7.58 10^3/uL (4.4-10.8)
[2020-11-02] MEDS: Normal Saline 1,000 ML 1000 ML IV (17:40)
[2020-11-02 17:51] LABS: Bilirubin Negative (Negative); Blood Moderate (Negative); Clarity Clear (Clear); Glucose Negative (Negative); Ketones Trace mg/dL (Negative); Leukocyte Esterase Negative (Negative); Nitrite Negative (Negative); Specific Gravity 1.025 (1.005-1.025); Urobilinogen 0.2 EU/dL (Up TO 0.2); pH 5.5 (5-8)
[2020-11-02 17:55] LABS: ALT 27 U/L (14-59); AST 15 U/L (15-37); Albumin 4.2 g/dL (3.4-5.0); Alkaline Phosphatase 93 U/L (46-116); Anion Gap 12.2 mmol/L (3-11); BUN 16 mg/dL (7-18); Bilirubin, Total 0.5 mg/dL (0.2-1.0); CO2 26.8 mmol/L (21.0-32.0); CREATININE 0.9 mg/dL (0.55-1.02); Calcium 9.5 mg/dL (8.5-10.1); Chloride 101 mmol/L (98-107); Glucose 109 mg/dL (74-106); Potassium 3.6 mmol/L (3.5-5.1); Sodium 140 mmol/L (136-145); Total Protein 8.1 g/dL (6.4-8.2); Troponin I < 0.05 ng/mL (<0.06)
[2020-11-02 17:57] LABS: Lipase 89 U/L (73-393)
[2020-11-02 17:57] LABS: Bacteria Negative HPF (Negative); C & S Indicated? No; Casts Negative LPF (Negative); Crystals Negative HPF (Negative); Epithelial Cells Few HPF (Negative); Mucus Negative (Negative)
[2020-11-02] MEDS: Omnipaque 350 MG/ML 100 ML BTL IJ (18:09)
--- NOTE | 2020-11-02 18:36 | DI.VRAD_ITS ---
PROCEDURE INFORMATION: Exam: CT Abdomen And Pelvis Without Contrast Exam date and time: 11/02/2020 5:18 PM Age: 50 years old Clinical indication: Abdominal pain TECHNIQUE: Imaging protocol: Computed tomography of the abdomen and pelvis without contrast. COMPARISON: CT ABDOMEN PELVIS W 02/01/2020 6:[address] abdomen and pelvis dated 09/01/2017. FINDINGS: Lungs: Minimal dependent atelectasis within the lung bases. The lung bases are otherwise clear. Pleural spaces: No pleural effusion. Heart: The heart is normal in size. No pericardial effusion. Liver: The liver is mildly enlarged. The liver is otherwise normal appearance. Gallbladder and bile ducts: Several tiny noncalcified gallstones are seen. No pericholecystic fluid, gallbladder wall thickening or bile duct dilatation. Pancreas: The pancreas is normal appearance. Spleen: The spleen is normal appearance. Adrenal glands: The bilateral adrenal glands are normal appearance. Kidneys and ureters: A 2 mm nonobstructing stone is seen within the superior right renal pelvis. This is unchanged from the prior study. The bilateral kidneys are otherwise normal in appearance. No hydroureteronephrosis. Stomach and bowel: Postoperative changes of a partial colectomy within anastomosis seen within the mid abdomen. Mild wall thickening and mild mesenteric stranding is seen within multiple loops of small bowel, proximal to the anastomosis. Mild circumferential wall thickening is also seen within the colon at the level of the anastomosis. Several loops of small bowel contact the undersurface of the ventral abdominal wall, immediately beneath the incision. This is similar when compared to the prior study, and may represent mild adhesion. No bowel obstruction or evidence for bowel incarceration. Mild wall thickening is seen within the gastric folds. Fluid is seen within nondilated loops of small bowel and throughout the right colon. The left colon is nondistended. No bowel obstruction. Appendix: The appendix is surgically absent. Intraperitoneal space: No free air, abscess or free fluid. Vasculature: Unremarkable. No abdominal aortic aneurysm. Lymph nodes: Increased number of small lymph nodes are seen within the root of the small bowel mesentery. Urinary bladder: The urinary bladder is nondistended. However, somewhat irregular [id number] wall thickening is seen, which is similar when compared to the prior study. Reproductive: The uterus is surgically absent. Bilateral cystic, complex and sub tapered masses are again seen within the bilateral adnexa, which are decreased in size from 09/01/2017 an or decreased in size when compared to 02/01/2020 as well. The lesion in the right adnexa measures 6.5 x 3.2 cm, previously measuring 8.0 x 3.9 cm. The lesion within the left adnexa measures 7.2 x 5.6 cm, previously measuring 9.1 x 7.0 cm. Bones/joints: Mild degenerative changes throughout the lumbar spine. No acute compression fracture. Soft tissues: Unremarkable. IMPRESSION: 1. Postoperative changes of a partial colectomy with wall thickening seen within the small bowel proximal to the anastomosis and within the colon at the level of the anastomosis. Fluid is seen within multiple nondilated loops of small bowel and right colon without a discrete transition point. Overall, this is most consistent with an infectious or inflammatory enterocolitis, with probable chronic partial adhesion of several small bowel loops to the undersurface of the ventral abdominal wall. No bowel obstruction, perforation or pneumatosis. No abscess. 2. Cholelithiasis without evidence for acute cholecystitis. 3. Bilateral mildly complex, septated adnexal masses, decreased in size from prior studies. While these could represent complex hematomas or lymphoceles, an underlying malignancy cannot be excluded. 4. Circumferential wall thickening within the urinary bladder, similar when compared to the prior study. This may represent cystitis. 5. Nonobstructing right-sided renal stone. Dictated and Authenticated by: Roselyn Wakefield MD. Ordering:ORLIN Zamornao MD
[2020-11-02 18:40] VITALS: BP 114/60; PULSE 80; RESP 18; TEMP 37.1; O2SAT 96
[2020-11-02 19:23] VITALS: BP 113/57; PULSE 78; RESP 16; TEMP 37; O2SAT 96
[2020-11-02 19:29] VITALS: BP 113/57; PULSE 78; RESP 16; TEMP 37; O2SAT 96
== END 2020-11-02 19:40 | disposition home or self-care (01) ==
PROVIDERS: Emergency Provider Student in an Organized Health Care Education/Training Program; PCP Internal Medicine
DX: K52.89 Other specified noninfective gastroenteritis and colitis (principal); R11.0 Nausea; Z90.49 Acquired absence of other specified parts of digestive tract
CPT/HCPCS: 80053; 83690; 93005; 96361; 96374; 96376; 99285; 74176; 81003; 81015; 83605; 83735; 84484; 85025; 93010; 99284; J3490

== ENCOUNTER 2021-01-29 08:38 | Outpatient (CLI) | payer MEDICAID, SELFPAY ==
[2021-01-29 10:44] LABS: Source Nasal/Nares
[2021-01-29 15:04] LABS: COVID-19 PCR Negative (Negative)
== END 2021-01-29 08:39 | disposition home or self-care (01) ==
PROVIDERS: PCP Internal Medicine; Visit Provider Surgery
DX: Z20.822 Contact with and (suspected) exposure to COVID-19 (principal); Z01.818 Encounter for other preprocedural examination
CPT/HCPCS: 87635

== ENCOUNTER 2021-02-09 01:02 | Outpatient (CLI) | payer MEDICAID, SELFPAY ==
--- NOTE | 2021-02-09 | DI.US_ITS ---
Exam(s) US ABDOMEN LIMITED EXAM: US ABDOMEN LIMITED INDICATION: RUQ PAIN, R10.11 COMPARISON: US from 07/08/2015 TECHNIQUE: Ultrasound abdomen performed using standard protocol FINDINGS: Abdominal ultrasound was performed according to the usual protocol. The liver is normal in size and shape. No focal hepatic lesion seen. There is increased echogenicity of the liver and decreased through transmission consistent with hepatic steatosis. Dependent portio ns of the liver are nonvisualized. There is cholelithiasis with an approximately 2 cm in diameter gallstone noted. There is no biliary dilatation. No gallbladder wall thickening or pericholecystic fluid collection. Pancreas appears intact as visualized. Spleen is unremarkable in appearance with no focal lesion. Kidneys are normal in size and shape. No renal mass, hydronephrosis, or nephrolithiasis. Abdominal aorta and IVC are of normal diameter. IMPRESSION: Cholelithiasis and probable hepatic steatosis.
== END 2021-02-09 01:22 ==
PROVIDERS: PCP Internal Medicine; Visit Provider Surgery
DX: R10.11 Right upper quadrant pain (principal); K80.20 Calculus of gallbladder without cholecystitis without obstruction; K76.0 Fatty (change of) liver, not elsewhere classified
CPT/HCPCS: 76705

== ENCOUNTER 2021-11-22 18:53 | Outpatient (REF) | payer MEDICAID, SELFPAY ==
--- NOTE | 2021-11-22 13:30 | PAPFT_PTH ---
PATIENT: Avis Ziegler LOC: [facility]#:[id number] AGE/SX: 51/F ROOM: RE11/22/[address]: Cheikh Lopez : 1970 BED: DIS: 11/22/2021 SPEC #: [id number] RECD: 11/23/21 12:44 STATUS: MARCUS SHULTZ #: [id number] MEAGHAN: 11/22/21 13:[address]: Lyn Lopezlaide DEPT: [facility] Cytology RECD BY: Jyoti Canales ENTERED: 11/23/21 12:45 SP TYPE: PAPFT OTHR DR: Linus Barton Tissues: 1 - CX/ENDOCX FOR PAP SMEARS Procedures: PAP THIN PREP/UVM Screening Comments: [id number]
== END 2021-11-22 18:54 | disposition home or self-care (01) ==
LOC: NCHCN 18:53
PROVIDERS: PCP Internal Medicine; Visit Provider Nurse Practitioner Family
DX: Z12.4 Encounter for screening for malignant neoplasm of cervix (principal)
CPT/HCPCS: 88142

== ENCOUNTER 2022-01-05 08:24 | Outpatient (REF) | payer MEDICAID, SELFPAY ==
[2022-01-05 20:29] LABS: Calculated LDL 159 mg/dL (<100); Cholesterol 233 mg/dL (<200); HDL Cholesterol 54 mg/dL (40-60); Triglyceride 103 mg/dL (<150)
== END 2022-01-05 08:25 | disposition home or self-care (01) ==
LOC: NCHCN 08:24
PROVIDERS: PCP Internal Medicine; Visit Provider Nurse Practitioner Family
DX: E78.5 Hyperlipidemia, unspecified (principal); R73.9 Hyperglycemia, unspecified
CPT/HCPCS: 80061

== ENCOUNTER 2022-04-04 09:39 | Outpatient (REF) | payer MEDICAID, SELFPAY | END 2022-04-04 09:40 | disposition home or self-care (01) | LOC: NCHCN 09:39 | PROVIDERS: PCP Internal Medicine; Visit Provider Nurse Practitioner Family ==

== ENCOUNTER 2023-03-20 11:08 | Outpatient (REF) | payer MEDICAID, SELFPAY ==
[2023-03-20 19:20] LABS: ALT 28 U/L (14-59); AST 22 U/L (15-37); Albumin 4.4 g/dL (3.4-5.0); Alkaline Phosphatase 101 U/L (46-116); Anion Gap 9.1 mmol/L (3-11); BUN 15 mg/dL (7-18); Bilirubin, Total 0.5 mg/dL (0.2-1.0); CO2 29.9 mmol/L (21.0-32.0); CREATININE 0.9 mg/dL (0.55-1.02); Calcium 9.7 mg/dL (8.5-10.1); Calculated LDL 167 mg/dL (<100); Chloride 103 mmol/L (98-107); Cholesterol 250 mg/dL (<200); Estimated GFR 75.97 (mL/min/1.73m2); Glucose 119 mg/dL (74-106); HDL Cholesterol 56 mg/dL (40-60); Potassium 4.1 mmol/L (3.5-5.1); Sodium 142 mmol/L (136-145); Total Protein 8.3 g/dL (6.4-8.2); Triglyceride 137 mg/dL (<150)
== END 2023-03-20 11:09 | disposition home or self-care (01) ==
LOC: NCHCN 11:08
PROVIDERS: PCP Internal Medicine; Visit Provider Nurse Practitioner Family
DX: E11.65 Type 2 diabetes mellitus with hyperglycemia (principal); E66.8 Other obesity
CPT/HCPCS: 80053; 80061

== ENCOUNTER → 2023-06-21 01:07 | Outpatient (CLI) | payer MEDICAID, SELFPAY ==
--- NOTE | 2023-06-21 | DI.US_ITS ---
Exam(s) US ABDOMEN LIMITED EXAM: US ABDOMEN LIMITED CLINICAL HISTORY: CHOLELITHIASIS,K80.20,H/O GALLSTONES TECHNIQUE: Ultrasound abdomen performed using standard protocol. COMPARISON: CT CT ABDOMEN PELVIS WO from 11/02/2020 US US ABDOMEN LIMITED from 02/09/2021 FINDINGS: The exam is limited by patient body habitus. The liver is not well seen. LIVER: Normal size. GALLBLADDER: Single large gallstone measuring 2.4 cm noted. No evidence of wall thickening. No peric holecystic fluid identified. REHMAN'S SIGN: Negative. BILIARY SYSTEM: No intrahepatic or extrahepatic biliary ductal dilation. RIGHT KIDNEY: Normal size. No evidence of renal calculi. No evidence of hydronephrosis. No suspicious renal mass. No cyst identified. PANCREAS: Normal where visualized. ABDOMINAL AORTA AND IVC: Visualized portions normal caliber. ASCITES: None seen. IMPRESSION: Cholelithiasis. No evidence of acute cholecystitis or biliary dilatation. DATA REPOSITORY:
== END ==
PROVIDERS: PCP Internal Medicine; Visit Provider Nurse Practitioner Family
DX: K80.20 Calculus of gallbladder without cholecystitis without obstruction (principal)
CPT/HCPCS: 76705

== ENCOUNTER 2024-01-14 16:01 | Emergency (ER) | payer MEDICAID, SELFPAY ==
[2024-01-14 16:12] VITALS: BP 155/61; PULSE 89; RESP 18; TEMP 37.2; O2SAT 97
--- NOTE | 2024-01-14 16:15 | DI.RAD_ITS ---
Exam(s) XR CHEST 2V PA LATERAL EXAM: XR CHEST 2V PA LATERAL CLINICAL HISTORY: Cough, URI TECHNIQUE: 2D digital imaging was performed. Two views. COMPARISON: CR CHEST 2 VIEWS PA,LAT from 05/07/[address] ABDOMEN PELVIS WO from 11/02/2020 FINDINGS: HEART: Normal size. Aorta: Not dilated. PULMONARY VASCULATURE: Normal. LUNGS: Question lingular infiltrate versus prominent epicardial fat pad. PLEURAL SPACE: No pleural effusion or pneumothorax. BONE:Unremarkable for age. Soft tissues: Unremarkable. IMPRESSION: Question lingular infiltrate versus prominent epicardial fat pad. DATA REPOSITORY: RADIATION DOSE DELIVERED:
--- NOTE | 2024-01-14 16:21 | ED.GENADUL_ITS ---
Discharge Plan Disposition Patient Disposition: Home Condition: Stable Discharge Details Clinical Impression: Pneumonia Primary Care Provider: Linus Barton ED Provider: Junie Sosa Home Meds and New Rx's Prescriptions: New benzonatate 100 mg capsule 100 mg PO BID PRN (Reason: cough) Qty: 14 0RF Rx Instructions: Take 1 capsule 2-3 times daily as needed for cough for the next 2 weeks Continued acetaminophen [Tylenol] 325 MG tablet 650 mg PO Q6H PRN PRN0RF ibuprofen [Advil] 200 MG tablet 200 mg PO Q6H PRN PRN0RF ondansetron HCl [Zofran] 4 mg tablet 4 mg PO Q8H Qty: 12 0RF doxycycline hyclate 100 mg capsule 100 mg PO BID Patient Comments: started 01/09 Discharge Instructions Instructions: Pneumonia (ED) Additional Instructions: Chest x-ray shows that you have pneumonia noted in the bases. Please continue taking the antibiotic doxycycline with yogurt or probiotic biotic as directed for the full course. Please continue to use the albuterol inhaler 1 to 2 puffs every 4-6 hours as previously prescribed. Use the tessalon perrles as needed for cough. Increase oral fluids. Please take Tylenol or Ibuprofen with food every 4-6 hours as needed for pain and swelling. Follow up with primary care provider in 5-7 days. Return to ED sooner if any worsening or concerns. Referrals: Linus Barton [Primary Care Provider] - 5 days HPI General Mode of arrival: ambulatory . Date/Time Provider Initiated Documentation: 01/14/24 16:01 . Limitations to Documentation: no limitations . Information obtained by: patient, RN notes reviewed and old records reviewed . HPI Narrative: 53 year old female here with 1 week of URI type symptoms including cough, hoarse voice. Patient was seen in urgent care approximately week ago was given prednisone and doxycycline and has had no improvement since. She is a daily smoker. On exam she does have hoarse voice, tight lung sounds with some expiratory wheezes on the left. Her posterior oropharynx slightly erythemic, no exudate noted. Related Data Home Medications Medication Instructions Recorded Confirmed acetaminophen 325 mg tablet 650 mg (2 x 325 mg) PO Q6H PRN PRN 18 01/14/24 (Tylenol) ibuprofen 200 mg tablet (Advil) 200 mg PO Q6H PRN PRN 10/27/17 01/14/24 ondansetron HCl 4 mg tablet 4 mg PO Q8H #12 tabs 11/02/20 01/14/24 (Zofran) benzonatate 100 mg capsule 100 mg PO BID PRN cough #14 caps 01/14/24 doxycycline hyclate 100 mg capsule 100 mg PO BID 01/14/24 01/14/24 Previous Rx's Medication Instructions Recorded acetaminophen 325 mg tablet 650 mg (2 x 325 mg) PO Q6H PRN PRN 10/27/17 (Tylenol) ibuprofen 200 mg tablet (Advil) 200 mg PO Q6H PRN PRN 10/27/17 ondansetron HCl 4 mg tablet 4 mg PO Q8H #12 tabs 11/02/20 (Zofran) benzonatate 100 mg capsule 100 mg PO BID PRN cough #14 caps 01/14/24 Allergies Allergy/AdvReac Type Severity Reaction Status Date / Time No Known Allergies Allergy Unverified 01/14/24 16:11 General Stated Complaint: RespSymp NEIL: 3 Review of Systems All systems reviewed & are unremarkable except as noted in HPI and below ENT Ears, Nose, Mouth, and Throat: Reports as per HPI Cardiovascular Cardiovascular: Reports as per HPI Respiratory Respiratory: Reports chest congestion, Reports cough and Reports wheezing Gastrointestinal Gastrointestinal: Denies diarrhea, Denies nausea and Denies vomiting Allergic/Immunologic Allergic/Immunologic: Reports wheezing Exam Narrative Exam Narrative: Constitutional: Alert and oriented x3. Appears stated age. Normal body habitus. Head: Normocephalic, no trauma. Eyes: Pupils PERRL, Red reflex noted, EOM's intact. Eyelids symmetrical without lesions, discharge, or swelling. ENT: Bilateral TM's WNL, External ear normal to inspection, no mastoid TTP, swelling, or erythema, Nasal turbinates WNL, no nasal discharge. Normal dentition, Posterior pharynx erythemic no exudate. Chest: RRR, Normal S1, S2, distal pulses intact. Resp: Lungs tight, expiratory wheezes left-sided, diminished in bases. Abdomen: Soft, non-distended, Normoactive bowel sounds all 4 quads. Musculoskeletal: Normal gait, Moves all 4 extremities without difficulty. Skin: No suspicious rashes or lesions. Capillary refill less than 2 sec. Neurologic: Cranial nerves II-XII intact. Alert and oriented x 3. Motor: No deficits noted. Sensory: Intact bilaterally all 4 extremities. Hematologic/Lymphatic: No ecchymosis, no lymphadenopathy. Course Vital Signs Vital signs: Vital Signs Temperature 37.2 C 01/14/24 16:12 Pulse 89 01/14/24 16:12 Respiratory Rate 18 01/14/24 16:12 Blood Pressure 155/61 H 01/14/24 16:12 Pulse Oximetry 97 01/14/24 16:12 Temperature 37.2 C 01/14/24 16:12 Temperature Source Temporal Artery Scan 01/14/24 16:12 Pulse 89 01/14/24 16:12 Respiratory Rate 18 01/14/24 16:12 Blood Pressure 155/61 H 01/14/24 16:12 Blood Pressure Position Sitting 01/14/24 16:12 Pulse Oximetry 97 01/14/24 16:12 Oxygen Delivery Method Room Air 01/14/24 16:12 Oxygen Flow Rate 0 01/14/24 16:12 Pain Level 9 01/14/24 16:12 Medical Decision Making 53 year old female here with 1 week of URI type symptoms including cough, hoarse voice. Patient was seen in urgent care approximately week ago was given prednisone and doxycycline and has had no improvement since. She is a daily smoker. On exam she does have hoarse voice, tight lung sounds with some expiratory wheezes on the left. Her posterior oropharynx slightly erythemic, no exudate noted. Chest x-ray, DuoNeb and dexamethasone 10 mg p.o. ordered. 1646: Reevaluation, lungs are moving much more air, patient reports she feels somewhat better. X-ray shows bilateral lingula infiltrates, I did discuss results with patient who verbalized understanding. I instructed her to continue taking the doxycycline and albuterol inhaler as previously prescribed. Patient was given a spacer to use with her inhaler and instructed on use. Patient was hemodynamically stable alert and oriented and ambulatory on discharge with her family. This text was generated using [employer] dictation system, please disregard any oddities of phrase or misspellings. Imaging Data Radiologic Study: Imaging: X-Ray Radiologist's impression: Imaging protocol: Radiologic exam of the chest. Views: 2 views. COMPARISON: CR CHEST 2 VIEWS PA,LAT 05/07/2018 11:16 AM FINDINGS: Lungs: Lingular infiltrates. The remaining lungs are clear. Pleural spaces: Unremarkable. No pleural effusion. No pneumothorax. Heart/Mediastinum: Unremarkable. No cardiomegaly. Vasculature: Unfolding of the aorta. Bones/joints: Mild degenerative disease of bilateral acromioclavicular joints. IMPRESSION: Lingular infiltrates. Thank you for allowing us to participate in the care of your patient. Dictated and Authenticated by: Miles Perera MD Quality:SDOH Health Related Social Needs: No Data to Display PFSH All Active Problems (Updated 01/14/24 @ 17:33 by Junie Sosa NP) Pneumonia (Acute) Intermittent abdominal pain (Acute) Diarrhea (Acute) Flushing (Acute) Pelvic hematoma (Acute) Anticoagulation excessive (Acute) Anemia (Acute) Postoperative ileus (Acute) S/P colostomy takedown (Acute) DVT (deep venous thrombosis) (Acute) Colostomy stricture (Acute) ostomy stricture (Acute) Surgical History Hernia Repair, Incisional (10/24/17) Social History Smoking/Tobacco Use Status: Current every day Tobacco Type: cigarettes Smoking risk assessment performed?: Yes Alcohol Intake: current Alcohol Intake frequency: holidays/special occasions only Drug use: Never Substance use type: does not use Do you feel safe at home: Yes Do you feel safe in your relationship?: Yes
[2024-01-14] MEDS: Albuterol/Ipratropium 3 ML UPD VIAL UPD (16:27)
[2024-01-14] MEDS: Dexamethasone 10 MG/ML VIAL PO (16:33)
[2024-01-14 16:38] VITALS: BP 155/61; PULSE 89; RESP 18; TEMP 37.2; O2SAT 97
--- NOTE | 2024-01-14 17:28 | DI.VRAD_ITS ---
PROCEDURE INFORMATION: Exam: XR Chest Exam date and time: 01/14/2024 4:36 PM Age: 53 years old Clinical indication: Patient HX: Cough, uri TECHNIQUE: Imaging protocol: Radiologic exam of the chest. Views: 2 views. COMPARISON: CR CHEST 2 VIEWS PA,LAT 05/07/2018 11:16 AM FINDINGS: Lungs: Lingular infiltrates. The remaining lungs are clear. Pleural spaces: Unremarkable. No pleural effusion. No pneumothorax. Heart/Mediastinum: Unremarkable. No cardiomegaly. Vasculature: Unfolding of the aorta. Bones/joints: Mild degenerative disease of bilateral acromioclavicular joints. IMPRESSION: Lingular infiltrates. Dictated and Authenticated by: Miles Perera MD. Ordering:MAYE Zaman MD
[2024-01-14 18:00] VITALS: BP 150/62; PULSE 80; RESP 18; TEMP 37.2; O2SAT 97
[2024-01-14] MEDS: Benzonatate 100 MG CAP PO ×2 (18:03)
== END 2024-01-14 17:58 | disposition home or self-care (01) ==
PROVIDERS: Emergency Provider Registered Nurse Emergency; PCP Internal Medicine
DX: J18.9 Pneumonia, unspecified organism (principal); F17.210 Nicotine dependence, cigarettes, uncomplicated; Z86.718 Personal history of other venous thrombosis and embolism
CPT/HCPCS: 94640; 99285; 71046; 99284; J1100; J7620

== ENCOUNTER 2024-03-20 14:00 | Outpatient (REF) | payer MEDICAID, SELFPAY ==
[2024-03-20 20:27] LABS: ALT 32 U/L (14-59); AST 25 U/L (15-37); Albumin 4.1 g/dL (3.4-5.0); Alkaline Phosphatase 102 U/L (46-116); Anion Gap 9.3 mmol/L (3-11); BUN 18 mg/dL (7-18); Bilirubin, Total 0.33 mg/dL (0.2-1.0); CO2 26.7 mmol/L (21.0-32.0); CREATININE 0.8 mg/dL (0.55-1.02); Calcium 9.4 mg/dL (8.5-10.1); Calculated LDL 157 mg/dL (<100); Chloride 106 mmol/L (98-107); Cholesterol 233 mg/dL (<200); Estimated GFR 86.96 (mL/min/1.73m2); Glucose 104 mg/dL (74-106); HDL Cholesterol 56 mg/dL (40-60); Potassium 4.3 mmol/L (3.5-5.1); Sodium 142 mmol/L (136-145); Total Protein 7.8 g/dL (6.4-8.2); Triglyceride 101 mg/dL (<150)
== END 2024-03-20 14:01 | disposition home or self-care (01) ==
LOC: NCHCN 14:00
PROVIDERS: PCP Internal Medicine; Visit Provider Nurse Practitioner Family
DX: E11.65 Type 2 diabetes mellitus with hyperglycemia (principal); E78.5 Hyperlipidemia, unspecified
CPT/HCPCS: 80053; 80061